=== PATIENT | male | born 2000 | race Caucasian/White ===

== ENCOUNTER 2023-04-17 21:36 | Emergency (ER) | payer BC, MEDICAID, SELFPAY ==
[2023-04-17 21:39] VITALS: BP 141/82; PULSE 98; RESP 14; TEMP 36.7; O2SAT 97
[2023-04-18 00:32] VITALS: BP 141/82; PULSE 98; RESP 14; TEMP 36.7; O2SAT 97
--- NOTE | 2023-04-18 03:48 | ED_ITS ---
HPI - Head Injury General: Chief complaint: Head Injury Stated complaint: head injury Time Seen by Provider: 04/17/23 22:34 Source: patient History of Present Illness: 22-year-old healthy male. He hit his head on the hitch of 5th wheel trailer earlier in the evening causing a laceration and bleeding. Bleeding continues. Tetanus is up-to-date. Complaint: head injury Onset (ago): hour(s) Mechanism of Injury: other Place: outdoors Loss of Consciousness: no Location of injury: frontal Severity: moderate Quality: burning Radiation: none Other Injuries: none Associated symptoms: Deny amnesia, confusion, nausea, neck pain, numbness, syncope, tingling, visual changes, vomiting or weakness Review of Systems Const: Denies: fever(s) Eyes: Denies: change in vision ENMT: Denies: throat pain Card: Denies: chest pain or syncope Resp: Denies: dyspnea, productive cough or non-productive cough GI: Denies: nausea or vomiting Musc: Denies: neck pain Neuro: Denies: confusion Physical Exam Const: COMMON NORMALS: no acute distress GENERAL APPEARANCE: cooperative; not ill appearing and not frail appearing HENMT: COMMON NORMALS: normocephalic, atraumatic and Normal external nose present HEAD & SCALP: normocephalic and atraumatic FACE & SINUS: normal facial exam and face symmetric NOSE: Normal external nose present Eye: COMMON NORMALS: Equal, round and reactive pupils present and EOMs intact bilaterally PUPIL: Yes Equal, round and reactive pupils present Neck/C-Spine: GENERAL: Yes trachea midline Chest: CHEST: Yes Symmetrical chest wall rise Resp: COMMON NORMALS: normal respiratory effort, No retractions, No use of accessory muscles and clear to auscultation bilaterally AUSCULTATION: clear to auscultation bilaterally Cardio: COMMON NORMALS: regular rate and regular rhythm RATE: regular rate RHYTHM: regular rhythm GI: COMMON NORMALS: Normal to inspection, nondistended, normoactive bowel sounds present Extremity: COMMON NORMALS: no pedal edema Neuro: ANA COMA SCALE: document [facility]CS findings [place] coma scale eye opening: Spontaneous Ana coma scale verbal response: Orientated [place] coma scale motor response: Obey commands [place] coma scale total score: 15 SENSORY EXAM: Yes extremities (intact) Psych: COMMON NORMALS: speech normal SPEECH: Yes normal speech Skin: NARRATIVE SKIN EXAM: 6 cm laceration through the dermal layer with mild separation at the left frontal parietal scalp. Procedures Laceration Laceration 1: Site: scalp Side (If applicable): left Size (cm): 6 Description: linear Depth: simple, single layer Local Anesthetic: lidocaine 1% and with epi Amount of anesthesia used (mL): 7 Pre-repair: wound explored, irrigated extensively and deep structures intact Skin layer closed with: other ([place]) Number of sutures: 8 Course Vital Signs: Vital signs: Vital Signs Temperature 98.1 F 04/18/23 00:32 Pulse Rate 98 04/18/23 00:32 Respiratory Rate 14 04/18/23 00:32 Blood Pressure 141/82 04/18/23 00:32 Pulse Oximetry 97 04/18/23 00:32 Oxygen Delivery Me thod Room Air 04/17/23 21:39 MDM - Head Injury Medcial Decision Making Patient is acting completely appropriate. No signs of closed head injury. Laceration repaired with staple, 8 and number. Good approximation. He will be allowed discharge. [place] out in 5 to 7 days. Return for any new or worsening symptoms. Discharge Plan Discharge Patient Disposition: Home Clinical Impression: Laceration of scalp Condition: Stable Discharge Orders: Discharge ED (Routine); Ordered 04/18/23 Ordered By: Salvador Spaulding Referrals: Etienne Santos MD [Primary Care Provider] - 4-7 days Patient Instructions: Scalp Laceration Activity Restrictions/Additional Instructions: You may wash with soap and running water. Do not soak. [place] out in 5 to 7 days. Return for any problems. Coding Level of Care Code ED Drawing Tracer for Mynor Mejia
== END 2023-04-18 00:33 | disposition home or self-care (01) ==
PROVIDERS: Emergency Provider Emergency Medicine; PCP Family Medicine
DX: S01.01XA Laceration without foreign body of scalp, initial encounter (principal); W22.09XA Striking against other stationary object, initial encounter
CPT/HCPCS: 12002; 99282